=== PATIENT | female | born 1960 | race Caucasian/White ===

== ENCOUNTER 2018-02-28 05:31 | Day surgery (SDC) | payer BC ==
[~2018-02-28] VITALS: Ht 162.6 cm; Wt 70.8 kg
[~2018-02-28 05:31] MED LIST: CALCIUM 600 +1 EAC9 PO; FLAX OIL1000 MG PO; IRON325 M1 PO; MULTIPLE VITAM1 EACH PO; VITAMIN B COMP1 EACH PO; VITAMIN C1000 MG PO; VITAMIN D2000 UNIT PO
[2018-02-28] MEDS ORDERED: MAGNESIUM250 MG PO (05:51)
[2018-02-28] MEDS ORDERED: POTASSIUM GLUCO99 M1 PO (05:52)
[2018-02-28 05:54] VITALS: BP 127/80
[2018-02-28 08:30] VITALS: BP 122/85
== END 2018-02-28 09:00 | disposition home or self-care (01) ==
LOC: SDC 05:31
PROC: 08B43ZZ Excision of Right Vitreous, Percutaneous Approach (ICD-10-PCS; principal; 2018-02-28)
DX: H43.811 Vitreous degeneration, right eye (principal); H43.391 Other vitreous opacities, right eye; E78.5 Hyperlipidemia, unspecified; E06.3 Autoimmune thyroiditis
CPT/HCPCS: J0690; J2250